=== PATIENT | female | born 1960 | race Caucasian/White ===

== ENCOUNTER 2021-01-25 18:37 | Emergency (ER) | payer OTHER, MEDICAID ==
[2021-01-25] MEDS ORDERED: Ibuprofen 800 MG Tab PO ONE (18:38)
[2021-01-25] MEDS ORDERED: Cyclobenzaprine 10 MG Tab PO ONE (18:38)
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
== END 2021-01-25 20:15 | disposition home or self-care (01) ==
LOC: FB.ED 18:37
DX: M54.5 Low back pain (principal); M54.2 Cervicalgia; V49.59XA Passenger injured in collision with other motor vehicles in traffic accident, initial encounter; Y92.410 Unspecified street and highway as the place of occurrence of the external cause
CPT/HCPCS: 99284; A9270

== ENCOUNTER 2021-06-23 06:53 | Day surgery (SDC) | payer MEDICAID ==
[2021-06-23] MEDS ORDERED: Propofol 200 MG/20 ML SDV IV ONE (06:54)
[2021-06-23] MEDS ORDERED: Sodium Chloride 0.9% 10 ML Syringe FLUSH PRN (07:15)
[2021-06-23] MEDS ORDERED: Lactated Ringers 1,000 ML IV SCH (07:15)
--- NOTE | 2021-06-23 08:40 | PCM.PN ---
- General Info Date of Service: 06/23/21 - Review of Systems Systems Review Comment:: 60 y/o female here for colonoscopy. Her last exam was about 10 years ago. She does admit to occasional episodes of rectal bleeding. Her recent H and P is reviewed and no significant changes are noted. She is medically stable to proceed. I have discussed the proposed colonoscopy with the patient. Risks such as but not limited to bleeding and GI injury discussed and she agrees to proceed. - Patient Data Vitals - Most Recent: Last Vital Signs Temp 98.9 F 06/23/21 08:02 Pulse Resp 18 06/23/21 08:02 BP 135/98 H 06/23/21 08:02 Pulse Ox 95 06/23/21 08:02 Weight - Most Recent: 168 lb Med Orders - Current: Current Medications Lactated Ringer's (Ringers, Lactated) 1,000 mls @ 125 mls/hr IV ASDIRECTED LAZ Last Admin: 06/23/21 08:11 Dose: 125 mls/hr Documented by: Sodium Chloride (Sodium Chloride 0.9% 10 Ml Syringe) 10 ml FLUSH ASDIRECTED PRN PRN Reason: Keep Vein Open Sepsis Event Note - Focused Exam Vital Signs: Vital Signs Temp Resp BP Pulse Ox 06/23/21 08:02 98.9 F 18 135/98 H 95 - Problem List Review Problem List Initiated/Reviewed/Updated: Yes - My Orders Last 24 Hours: My Active Orders 06/23/21 Breakfast Nothing Per Oral Diet [DIET] 06/23/21 07:15 Patient Status [ADT] Routine Patient to Empty Bladder [RC] ASDIRECTED Verify Patient Consent Obtain [RC] ASDIRECTED Lactated Ringers [Ringers, Lactated] 1,000 ml IV ASDIRECTED Sodium Chloride 0.9% [Saline Flush] 10 ml FLUSH ASDIRECTED PRN Peripheral IV Insertion Adult [OM.PC] Routine - Assessment Assessment:: Colon cancer screening - Plan Plan:: Colonoscopy
--- NOTE | 2021-06-23 09:25 | PCM.OPNOTE ---
- General Post-Op/Procedure Note Date of Surgery/Procedure: 06/23/21 Operative Procedure(s): Colonoscopy with biopsy Findings: Extensive sigmoid diverticulosis without acute inflammation slightly thicken fold in cecum Small hemorrhoids Pre Op Diagnosis: Colon cancer screening Post-Op Diagnosis: Sigmoid Diverticulosis. Thicken cecal fold. Hemorrhoids Anesthesia Technique: MAC Primary Surgeon: Deon Anguiano Pathology: Biopsies of cecal fold EBL in mLs: 1 Complications: None Condition: Good
--- NOTE | 2021-06-23 10:50 | OR ---
DATE OF OPERATION: 06/23/2021 SURGEON: Deon Anguiano MD PREOPERATIVE DIAGNOSIS: Colon cancer screening. POSTOPERATIVE DIAGNOSIS: Sigmoid diverticulosis, thickened cecal fold, and hemorrhoids. OPERATION PERFORMED: Colonoscopy with biopsy. INDICATIONS FOR SURGERY: This 60-year-old female comes today for screening colonoscopy. It has been 10 years since her last colon exam. FINDINGS: The patient has an extensive amount of diverticulosis in the sigmoid region. Multiple diverticula are noted, but they do not appear to be acutely inflamed. In the cecum, there is a small area where one of the folds seemed slightly thickened and so biopsies of it were performed. There is also a small amount of internal and external hemorrhoids noted. PROCEDURE IN DETAIL: The patient was taken to the procedure room. She was given intravenous sedation and with her in the left lateral decubitus position, digital rectal exam was performed showing no rectal masses. The Olympus colonoscope was inserted into the rectum. Retroflexed examination of the rectal canal was performed. The scope was then carefully advanced through the entire length of the colon until the cecum was reached. Cecal acquisition was confirmed by noting the normal internal cecal anatomy including the appendiceal orifice and the ileocecal valve. The colon was somewhat tortuous and hand pressure was required to assist in reaching the cecum with the scope. In the cecum, there was a slight thickening of one of the folds and random biopsies of this were taken to assure that it was normal. The scope was then slowly withdrawn sequentially re-examining the colonic segments until the entire colon and rectum had been fully examined. The scope was removed and the patient was taken from the procedure room in satisfactory condition. ESTIMATED BLOOD LOSS: 1 mL. COMPLICATIONS: None. PROGNOSIS: Good. /[id number] BELL/PATTI
== END 2021-06-23 10:15 | disposition home or self-care (01) ==
LOC: FB.SDS 06:53
PROVIDERS: ATTEND Surgery
DX: Z12.11 Encounter for screening for malignant neoplasm of colon (principal); K63.5 Polyp of colon; K57.30 Diverticulosis of large intestine without perforation or abscess without bleeding; K63.89 Other specified diseases of intestine; K64.8 Other hemorrhoids; K64.4 Residual hemorrhoidal skin tags; I10 Essential (primary) hypertension; G62.9 Polyneuropathy, unspecified; E03.9 Hypothyroidism, unspecified; G47.33 Obstructive sleep apnea (adult) (pediatric); Z98.890 Other specified postprocedural states
CPT/HCPCS: 00812-QZ; 88305; J2704; J7120

== ENCOUNTER 2024-07-17 17:12 | Emergency (ER) | payer OTHER, BC ==
[2024-07-17] MEDS ORDERED: Sodium Chloride 0.9% 10 ML Syringe FLUSH PRN (17:13)
[2024-07-17 17:41] LABS: BASOPHILS PERCENT AUTO 0.3 % (0.2-1.5); EOSINOPHILS ABSOLUTE AUTO 0.2 x10-3/uL (0.0-0.8); EOSINOPHILS PERCENT AUTO 2.2 % (0.6-8.1); HEMATOCRIT 38.3 % (34.2-48.2); HEMOGLOBIN 13.2 g/dL (11.4-15.5); LYMPHOCYTES ABSOLUTE AUTO 3.1 x10-3/uL (1.0-4.4); LYMPHOCYTES PERCENT AUTO 40.9 % (18.4-52.1); MEAN CORPUSCULAR HEMOGLOBIN 30.8 pg (23.9-33.9); MEAN CORPUSCULAR HGB CONC 34.5 g/dL (31.9-34.8); MEAN CORPUSCULAR VOLUME 89.1 fL (76.7-100.5); MEAN PLATELET VOLUME 8.3 fL (7.1-12.4); MONOCYTES ABSOLUTE AUTO 0.7 x10-3/uL (0.3-1.0); MONOCYTES PERCENT AUTO 8.6 % (4.4-15.7); NEUTROPHILS ABSOLUTE AUTO 3.6 x10-3/uL (1.5-6.3); NEUTROPHILS PERCENT AUTO 48.1 % (30.8-76.2); PLATELET COUNT,PLT 223 x10(3)uL (151-488); RED CELL DISTRIBUTION WIDTH 13.1 % (12.3-16.5); WHITE BLOOD CELL COUNT,WBC 7.5 x10-3/uL (3.0-10.3)
[2024-07-17 17:49] LABS: BLOOD UREA NITROGEN,BUN 16 mg/dL (7-18); BUN/CREATININE RATIO 22.9 (9-20); CALCIUM 9.1 mg/dL (8.6-10.2); CARBON DIOXIDE,CO2 28 mmol/L (21-32); CHLORIDE,CL 104 mmol/L (100-110); CREATININE 0.7 mg/dL (0.55-1.02); EST CRCL DRUG DOSING (CG) 61.27 mL/min; ESTIMATED GFR 97 mL/min (>60); GLUCOSE RANDOM 108 mg/dL (80-116); POTASSIUM,K 4.2 mmol/L (3.5-5.3); SODIUM,NA 141 mmol/L (135-145)
[2024-07-17 17:55] LABS: A/G RATIO 1.1; ALANINE AMINOTRANSFERASE,ALT 23 U/L (12-36); ALBUMIN 3.3 g/dL (3.2-4.6); ALKALINE PHOSPHATASE 90 IU/L (56-112); ASPARTATE AMNIOTRANSFERASE,AST 15 IU/L (5-25); BILIRUBIN TOTAL 0.4 mg/dL (0.1-1.3); CREATINE KINASE,CK 79 IU/L (60-160); PROTEIN TOTAL,TP 6.4 g/dL (6.0-8.0)
[2024-07-17] MEDS: Iopamidol 755 Mg/ML 100 ML Bottle IV SCH (18:34)
== END 2024-07-17 20:11 | disposition home or self-care (01) ==
LOC: FB.ED 17:12
DX: S06.0X1A Concussion with loss of consciousness of 30 minutes or less, initial encounter (principal); S13.4XXA Sprain of ligaments of cervical spine, initial encounter; S40.012A Contusion of left shoulder, initial encounter; I10 Essential (primary) hypertension; E03.9 Hypothyroidism, unspecified; V49.49XA Driver injured in collision with other motor vehicles in traffic accident, initial encounter; Y93.89 Activity, other specified
CPT/HCPCS: 36415; 70450; 71260; 72125; 74177; 80053; 82550; 85025; 93005; 99285; Q9967

== ENCOUNTER 2024-07-26 15:14 | Emergency (ER) | payer OTHER, BC ==
[2024-07-26 16:14] LABS: BASOPHILS PERCENT AUTO 0.4 % (0.2-1.5); EOSINOPHILS ABSOLUTE AUTO 0.1 x10-3/uL (0.0-0.8); EOSINOPHILS PERCENT AUTO 1.1 % (0.6-8.1); HEMATOCRIT 40.8 % (34.2-48.2); HEMOGLOBIN 13.8 g/dL (11.4-15.5); LYMPHOCYTES ABSOLUTE AUTO 2.5 x10-3/uL (1.0-4.4); MEAN CORPUSCULAR HEMOGLOBIN 29.3 pg (23.9-33.9); MEAN CORPUSCULAR HGB CONC 33.9 g/dL (31.9-34.8); MEAN CORPUSCULAR VOLUME 86.5 fL (76.7-100.5); MEAN PLATELET VOLUME 8.7 fL (7.1-12.4); MONOCYTES ABSOLUTE AUTO 0.6 x10-3/uL (0.3-1.0); NEUTROPHILS ABSOLUTE AUTO 5.7 x10-3/uL (1.5-6.3); NEUTROPHILS PERCENT AUTO 63.5 % (30.8-76.2); PLATELET COUNT,PLT 242 x10(3)uL (151-488); RED BLOOD CELL COUNT 4.72 x10(6)uL (3.60-5.20); RED CELL DISTRIBUTION WIDTH 13.2 % (12.3-16.5); WHITE BLOOD CELL COUNT,WBC 8.9 x10-3/uL (3.0-10.3)
[2024-07-26 16:16] LABS: BLOOD UREA NITROGEN,BUN 19 mg/dL (7-18); BUN/CREATININE RATIO 21.1 (9-20); CALCIUM 9.2 mg/dL (8.6-10.2); CARBON DIOXIDE,CO2 28 mmol/L (21-32); CHLORIDE,CL 103 mmol/L (100-110); CREATININE 0.9 mg/dL (0.55-1.02); EST CRCL DRUG DOSING (CG) 61.41 mL/min; ESTIMATED GFR 71 mL/min (>60); GLUCOSE RANDOM 122 mg/dL (80-116); POTASSIUM,K 4.2 mmol/L (3.5-5.3); SODIUM,NA 139 mmol/L (135-145)
== END 2024-07-26 17:15 | disposition home or self-care (01) ==
LOC: FB.ED 15:14
DX: K92.2 Gastrointestinal hemorrhage, unspecified (principal); I10 Essential (primary) hypertension; E03.9 Hypothyroidism, unspecified; Z79.890 Hormone replacement therapy; Z79.899 Other long term (current) drug therapy
CPT/HCPCS: 36415; 80048; 85025; 99284

== ENCOUNTER 2024-08-21 05:58 | Day surgery (SDC) | payer BC, OTHER ==
[2024-08-21] MEDS ORDERED: Propofol 200 MG/20 ML SDV IV ONE (05:59)
[2024-08-21] MEDS ORDERED: Lidocaine 2% 100 MG/5 ML Syringe IVPUSH ONE (05:59)
[2024-08-21] MEDS ORDERED: Sodium Chloride 0.9% 10 ML Syringe FLUSH PRN (06:15)
[2024-08-21] MEDS: Lactated Ringers 1,000 ML IV SCH (07:23)
== END 2024-08-21 08:55 | disposition home or self-care (01) ==
LOC: FB.SDS 05:58
PROVIDERS: ATTEND Surgery
DX: K57.31 Diverticulosis of large intestine without perforation or abscess with bleeding (principal); Z80.0 Family history of malignant neoplasm of digestive organs; I10 Essential (primary) hypertension; E03.9 Hypothyroidism, unspecified; Z79.890 Hormone replacement therapy; Z79.899 Other long term (current) drug therapy
CPT/HCPCS: 00811; 45378; J2704; J7120

== ENCOUNTER 2024-11-16 20:09 | Emergency (ER) | payer BC, MEDICARE ==
[2024-11-16] MEDS ORDERED: Lidocaine 1% 5 ML VIAL INFILT ONE (20:10)
== END 2024-11-16 21:00 | disposition home or self-care (01) ==
LOC: FB.ED 20:09
DX: S61.216A Laceration without foreign body of right little finger without damage to nail, initial encounter (principal); I10 Essential (primary) hypertension; E03.9 Hypothyroidism, unspecified; Z79.890 Hormone replacement therapy; Z79.899 Other long term (current) drug therapy; W26.8XXA Contact with other sharp object(s), not elsewhere classified, initial encounter
CPT/HCPCS: 12001; 99283; J2003